=== PATIENT | male | born 1955 | race Caucasian/White ===

== ENCOUNTER 2016-12-03 03:20 | Observation (INO) | payer MEDICAID ==
[2016-12-03] MEDS ORDERED: NS 1,000 ML IV ONE (03:53)
[2016-12-03 04:00] LABS: % IMMATURE GRANULYOCYTES 0.6 % (0.0-1.1); ABSOLUTE IMMATURE GRANULOCYTES 0.14 10^3/uL (0.00-0.10); ADD DIFF? NO; ADD MORPH? NO; ADD SCAN? NO; ATYPICAL LYMPHOCYTE FLAG 0 (0-99); FRAGMENT RBC FLAG 0 (0-99); HEMATOCRIT 43.7 % (40.0-51.0); HEMOGLOBIN 13.5 g/dL (13.7-17.5); LEFT SHIFT FLG 0 (0-99); LIPEMIA HEMOLYSIS FLAG 80 (0-99); MEAN CELL HEMOGLOBIN 27.7 pg (27.9-34.1); MEAN CELL HEMOGLOBIN CONCENTR. 30.9 g/dL (32.4-36.7); MEAN CELL VOLUME 89.5 fL (81.5-99.8); MEAN PLATELET VOLUME 9.6 fL (8.7-11.7); PLATELET CLUMPS FLAG 0 (0-99); PLATELET COUNT 337 10^3/uL (150-400); RED BLOOD CELL COUNT 4.88 10^6/uL (4.40-6.38); RED CELL DISTRIBUTION WIDTH 17.8 % (11.5-15.2)
[2016-12-03 04:06] LABS: ALANINE AMINOTRANSFERASE 22 IU/L (21-72); ALBUMIN 3.9 g/dL (3.5-5.0); ALKALINE PHOSPHATASE 94 IU/L (38-126); ANION GAP 16 mEq/L (8-16); ASPARTATE AMINOTRANSFERASE 18 IU/L (17-59); BILIRUBIN,TOTAL 0.7 mg/dL (0.1-1.4); CALCIUM 9.3 mg/dL (8.5-10.4); CARBON DIOXIDE 22 mEq/l (22-31); CHLORIDE 106 mEq/L (97-110); CREATININE 1.9 mg/dL (0.7-1.3); GLOMERULAR FILTRATION RATE 36; GLUCOSE 185 mg/dL (70-100); SODIUM 144 mEq/L (134-144); TOTAL PROTEIN 6.5 g/dL (6.3-8.2)
[2016-12-03 04:08] LABS: INR 1.04 (0.83-1.16); PROTIME(PATIENT) 13.5 SEC (12.0-15.0)
[2016-12-03 04:09] LABS: APTT 34.9 SEC (23.0-38.0)
[2016-12-03 04:40] LABS: COLOR YELLOW; LEUKOCYTE ESTERASE,URINE 3+ (NEGATIVE); NITRITE,URINE NEGATIVE (NEGATIVE)
[2016-12-03] MEDS ORDERED: ONDANSETRON 4 MG/2 ML VIAL IVP ONE (04:55)
[2016-12-03] MEDS ORDERED: ONDANSETRON 4 MG/2 ML VIAL ONE (04:56)
[2016-12-03 04:59] LABS: AMORPHOUS PRESENT /hpf (NONE-1+); MUCUS TRACE /lpf (NONE-1+); WBC,URINE 50-182 /hpf (0-3)
--- NOTE | 2016-12-03 05:21 | EDPHY ---
H & P Stated Complaint: vomiting since yesterday, [facility] reports coffee grounds. Time Seen by Provider: 12/03/16 03:27 HPI/ROS: HPI The patient presents with nausea and vomiting for the last 24 hours, this started suddenly and has been constant, apparently it has appeared coffee- ground in nature to the nurses at his fdc, [facility]. He has not complained of abdominal pain, it is unclear when his last bowel movement was. He is on aspirin 81 mg. He had a similar presentation requiring hospital admission, his symptoms resolved on their own, CT showed ileus versus partial small-bowel obstruction. He has no prior history of abdominal operation according to his records. REVIEW OF SYSTEMS Unable to obtain given patient's aphasia PMHx: Status post CVA, history of aspiration pneumonia Soc Hx: Resides at [facility] PHYSICAL General Appearance: Alert, no distress Eyes: Pupils equal and round no pallor or injection ENT, Mouth: Mucous membranes moist Respiratory: There are no retractions, lungs are clear to auscultation Cardiovascular: Regular rate and rhythm Gastrointestinal: Abdomen is distended, with mild diffuse tenderness Neurological: Alert Skin: Warm and dry, no rashes Musculoskeletal: Neck is supple non tender Extremities: Contractures of his left upper extremity Psychiatric: Patient is oriented X 3, there is no agitation Source: EMS, longterm records, Old records - Personal History Current Tetanus/Diphtheria Vaccine: Unsure Current Tetanus Diphtheria and Acellular Pertussis (TDAP): Unsure - Medical/Surgical History Hx Asthma: No Hx Chronic Respiratory Disease: No Hx Diabetes: Yes Hx Cardiac Disease: Yes Hx Renal Disease: No Hx Cirrhosis: No Hx Alcoholism: No Hx HIV/AIDS: No Hx Splenectomy or Spleen Trauma: No Other PMH: CVA with left sided hemiplegia; T2DM; depression; htn; 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; dysarthria; anemia; hypokalemia; - Social History Smoking Status: Unknown if ever smoked Constitutional: Initial Vital Signs Temperature (C) 36.6 C 12/03/16 03:27 Heart Rate 95 12/03/16 03:27 Respiratory Rate 18 12/03/16 03:27 Blood Pressure 135/92 H 12/03/16 03:27 O2 Sat (%) 93 12/03/16 03:27 O2 Delivery Mode Nasal Cannula O2 (L/minute) 2 Allergies/Adverse Reactions: No Known Allergies Allergy (Unverified 02/14/13 08:17) Home Medications: Medication Instructions Recorded Atorvastatin Calcium [Lipitor 10 10 mg PO HS 01/05/15 mg (*)] Bisacodyl [Dulcolax] 10 mg MI DAILY PRN 01/05/15 Cyclobenzaprine [Flexeril 10 MG 10 mg PO TID 01/05/15 (*)] Ipratropium/Albuterol [Duoneb (*)] 1 inh NEB Q4 PRN 01/05/15 Labetalol HCl [Trandate 200 mg (*)] 200 mg PO TID 01/05/15 Losartan Potassium [Cozaar] 100 mg PO DAILY 01/05/15 Magnesium Hydroxide [Milk of 30 ml PO DAILY PRN 01/05/15 Magnesia (*)] Sennosides/Docusate Sodium 2 tab PO BID 01/05/15 [Senokot-S] amLODIPine BESYLATE [Norvasc 5 mg 5 mg PO BID 01/05/15 (*)] Lidocaine 2% Jelly [Lidocaine 2% 1 vishal TP PRN PRN 06/06/15 Jelly 30 gm] Ondansetron Odt [Zofran Odt 4 mg 4 mg PO Q8 PRN 06/06/15 (*)] Acetaminophen [Tylenol 325mg (*)] 650 mg PO DAILY PRN 10/16/15 Ipratropium/Albuterol [Duoneb (*)] 3 ml IH Q12 PRN 10/16/15 Mag Hydrox/Al Hydrox/Simeth 30 ml PO Q8 PRN 10/16/15 [Maalox Maximum Strength Suspension] Polyethylene Glycol 3350 [Miralax 17 gm PO DAILY 10/16/15 17 gm (*)] PRILOSEC 12/03/16 Medical Decision Making - Diagnostics Imaging Results: CT scan abdomen pelvis without IV contrast demonstrates SBO with transition in the mid small distal jejunum and proximal ileum, stomach is distended, minimal mesenteric edema, discussed with Dr. Arambula of Radiology. Differential Diagnosis: This is a 61-year-old man from [place] with history of CVA, hypertension, diabetes, prior upper GI bleed, self-limited, coming in by ambulance for 24 hours of nausea and vomiting, which has become coffee-ground in nature. Differential diagnosis includes bowel obstruction, peptic ulcer disease, duodenal ulcer, Johanna-Barrera tear less likely esophageal varices. In the emergency room, the patient was given IV fluids for vomiting and Zofran. He was started on a Protonix bolus and then a drip. He did not have any active vomiting here. Labs were checked and revealed a profound leukocytosis. UA showed signs of infection however was from his Blount catheter and may likely be contaminated. We can send culture. CT scan was performed without contrast because of the patient's elevated BUN and creatinine. This revealed small-bowel obstruction. In the absence of any previous operations, is not clear the cause of his bowel obstruction. I consulted with Dr. Aly will see the patient in consultation in the hospital. I also consulted with Dr. Clark of the hospitalist service and he will admit the patient. We placed an NG tube with return of about 900 mL of dark fluid. - Data Points Laboratory Results: Laboratory Results 12/03/16 03:36 12/03/16 03:36 12/03/16 12/03/16 12/03/16 04:28 03:36 03:36 WBC RBC Hgb Hct MCV MCH MCHC RDW Plt Count MPV Neut % (Auto) Lymph % (Auto) Bill[place] % (Auto) Eos % (Auto) Baso % (Auto) Nucleat RBC Rel Count Absolute Neuts (auto) Absolute Lymphs (auto) Absolute Monos (auto) Absolute Eos (auto) Absolute Basos (auto) Absolute Nucleated RBC Immature Gran % Immature Gran # PT 13.5 SEC SEC (12.0-15.0) INR 1.04 (0.83-1.16) APTT 34.9 SEC SEC (23.0-38.0) Sodium 144 mEq/L mEq/L (134-144) Potassium 5.0 mEq/L mEq/L (3.5-5.2) Chloride 106 mEq/L mEq/L (97-110) Carbon Dioxide 22 mEq/l mEq/l (22-31) Anion Gap 16 mEq/L mEq/L (8-16) BUN 31 mg/dL H mg/dL (7-23) Creatinine 1.9 mg/dL H mg/dL (0.7-1.3) Estimated GFR 36 Glucose 185 mg/dL H mg/dL (70-100) Calcium 9.3 mg/dL mg/dL (8.5-10.4) Total Bilirubin 0.7 mg/dL mg/dL (0.1-1.4) AST 18 IU/L IU/L (17-59) ALT 22 IU/L IU/L (21-72) Alkaline Phosphatase 94 IU/L IU/L (38-126) Total Protein 6.5 g/dL g/dL (6.3-8.2) Albumin 3.9 g/dL g/dL (3.5-5.0) Lipase 76.0 IU/L IU/L (23-300) Urine Color YELLOW Urine Appearance MODERATELY TURBID Urine pH 8.0 H (5.0-7.5) Ur Specific [place] 1.020 (1.002-1.030) Urine Protein 2+ H (NEGATIVE) Urine Ketones NEGATIVE (NEGATIVE) Urine Blood NEGATIVE (NEGATIVE) Urine Nitrate NEGATIVE (NEGATIVE) Urine Bilirubin NEGATIVE (NEGATIVE) Urine Urobilinogen NEGATIVE EU EU (0.2-1.0) Ur Leukocyte Esterase 3+ H (NEGATIVE) Urine RBC 1-3 /hpf /hpf (0-3) Urine WBC 50-182 /hpf H /hpf (0-3) Ur Epithelial Cells NONE SEEN /lpf /lpf (NONE-1+) Calcium Phosphate Cryst PRESENT /hpf /hpf (NONE-1+) Amorphous Sediment PRESENT /hpf /hpf (NONE-1+) Urine Mucus TRACE /lpf /lpf (NONE-1+) Urine Glucose NEGATIVE (NEGATIVE) 12/03/16 03:36 WBC 23.40 10^3/uL H 10^3/uL (3.80-9.50) RBC 4.88 10^6/uL 10^6/uL (4.40-6.38) Hgb 13.5 g/dL L g/dL (13.7-17.5) Hct 43.7 % % (40.0-51.0) MCV 89.5 fL fL (81.5-99.8) MCH 27.7 pg L pg (27.9-34.1) MCHC 30.9 g/dL L g/dL (32.4-36.7) RDW 17.8 % H % (11.5-15.2) Plt Count 337 10^3/uL 10^3/uL (150-400) MPV 9.6 fL fL (8.7-11.7) Neut % (Auto) 89.7 % H % (39.3-74.2) Lymph % (Auto) 4.8 % L % (15.0-45.0) Billings % (Auto) 4.6 % % (4.5-13.0) Eos % (Auto) 0.0 % L % (0.6-7.6) Baso % (Auto) 0.3 % % (0.3-1.7) Nucleat RBC Rel Count 0.0 % % (0.0-0.2) Absolute Neuts (auto) 20.99 10^3/uL H 10^3/uL (1.70-6.50) Absolute Lymphs (auto) 1.12 10^3/uL 10^3/uL (1.00-3.00) Absolute Monos (auto) 1.07 10^3/uL H 10^3/uL (0.30-0.80) Absolute Eos (auto) 0.01 10^3/uL L 10^3/uL (0.03-0.40) Absolute Basos (auto) 0.07 10^3/uL 10^3/uL (0.02-0.10) Absolute Nucleated RBC 0.00 10^3/uL 10^3/uL (0-0.01) Immature Gran % 0.6 % % (0.0-1.1) Immature Gran # 0.14 10^3/uL H 10^3/uL (0.00-0.10) PT INR APTT Sodium Potassium Chloride Carbon Dioxide Anion Gap BUN Creatinine Estimated GFR Glucose Calcium Total Bilirubin AST ALT Alkaline Phosphatase Total Protein Albumin Lipase Urine Color Urine Appearance Urine pH Ur Specific [place] Urine Protein Urine Ketones Urine Blood Urine Nitrate Urine Bilirubin Urine Urobilinogen Ur Leukocyte Esterase Urine RBC Urine WBC Ur Epithelial Cells Calcium Phosphate Cryst Amorphous Sediment Urine Mucus Urine Glucose Medications Given: Discontinued Medications Sodium Chloride (Ns) 1,000 mls @ 0 mls/hr IV ONCE ONE; Wide Open PRN Reason: Protocol Stop: 12/03/16 03:54 Last Admin: 12/03/16 03:59 Dose: 1,000 mls Pantoprazole Sodium 80 mg/ (Sodium Chloride) 100 mls @ 200 mls/hr IV ONCE ONE Stop: 12/03/16 06:16 Last Admin: 12/03/16 06:20 Dose: 100 mls Ondansetron HCl (Zofran) 4 mg IVP EDNOW ONE Stop: 12/03/16 04:56 Last Admin: 12/03/16 04:59 Dose: 4 mg Departure - Departure Disposition: [facility] Inpatient Acute Clinical Impression: Upper GI bleed, SBO (small bowel obstruction), History of CVA with residual deficit Vomiting Qualifiers: Vomiting type: unspecified Vomiting Intractability: non-intractable Nausea presence: with nausea Qualified Code(s): R11.2 - Nausea with vomiting, unspecified Leukocytosis Qualifiers: Leukocytosis type: unspecified Qualified Code(s): D72.829 - Elevated white blood cell count, unspecified Condition: Fair Referrals: JULIUS HUGGINS [Primary Care Provider] - As per Instructions
[2016-12-03] MEDS ORDERED: PANTOPRAZOLE SODIUM 80 MG in NS 100 ML IV ONE (05:47)
[2016-12-03] MEDS ORDERED: PANTOPRAZOLE SODIUM 80 MG in NS 100 ML IV SCH (06:00)
[2016-12-03] MEDS ORDERED: ONDANSETRON 4 MG/2 ML VIAL IVP PRN (06:23)
[2016-12-03] MEDS ORDERED: PROMETHAZINE HCL 25 MG/ML INJ IVP PRN (06:23)
[2016-12-03] MEDS ORDERED: ACETAMINOPHEN 325 MG TAB PO PRN (06:23)
[2016-12-03] MEDS ORDERED: LIDOCAINE 2% JELLY 20 ML (UROJECT) ONE ×2 (06:36→11:18)
--- NOTE | 2016-12-03 07:05 | GHP ---
[f rep st] HISTORY AND PHYSICAL DATE OF ADMISSION: 12/03/2016 CHIEF COMPLAINT: Nausea and vomiting. HISTORY OF PRESENT ILLNESS: This is a 61-year-old male, resident of [place], with history of CVA with resulting left-sided hemiparesis who presented to the emergency department today with reported 24 hour history of nausea and vomiting. The patient was admitted to the hospital with similar symp toms in September of 2015, at which time, he was diagnosed with a possible upper GI bleed and was ultima tely discharged without undergoing endoscopy or receiving transfusion. Patient tells me that his nausea and vomiting began yesterday. He had some diarrhea yesterday zahra gaitan as well and has not had a bowel movement since. He has not been able to tolerate fluids or solid s due to the vomiting. Per report, his vomitus was noted to be very dark and possibly containing so me coffee-grounds. Patient denies any abdominal pain. He does take aspirin. The last endoscopy wa s in 2012 where he was found to have an ulcer. PAST MEDICAL HISTORY: 1. History of CVA with left-sided flaccid paralysis. 2. Diabetes mellitus 2. 3. Hypertension. 4. Depression. 5. Anemia. 6. Hospitalizations for pneumonia. 7. Hospitalizations for urinary tract infections. 8. C difficile. 9. Esophageal ulcer on endoscopy January of 2013. HOME MEDICATIONS: Refer to [facility] for details. ALLERGIES: No known drug allergies. SOCIAL HISTORY: The patient resides at [facility]. There is no history of alcohol, tobacco or illic it drug use. FAMILY HISTORY: Reviewed and noncontributory. REVIEW OF SYSTEMS: A comprehensive 10-point review of systems was done and is negative, except for as mentioned in the HPI. PHYSICAL EXAM: VITAL SIGNS: Blood pressure 123/77, pulse 94, respiratory rate 16, O2 saturation 96 % on 2 L, temperature afebrile. GENERAL: No acute distress. HEAD: Normocephalic, atraumatic. EY ES: PERRLA. Sclerae anicteric. ENT: Nasogastric tube is in place draining dark colored gastric c ontents with no obvious coffee-grounds. CARDIOVASCULAR: S1, S2. No JVD. Mild left lower extremit y edema. Right leg is without swelling or edema. PULMONARY: Lungs are clear. No wheezes, rales, o r rhonchi. ABDOMEN: Distended, but nontender. There is no guarding. Bowel sounds are diminished. EXTREMITIES: No clubbing or cyanosis. NEURO: Left-sided paralysis. There does not appear to be any acute neurologic changes. Cranial nerves 2 through 12 are grossly intact. DIAGNOSTICS: WBC is 23.4, hemoglobin 13.5, hematocrit 43.7, platelets 337. INR 1.04. Sodium 144, potassium 5, chloride 106, CO2 22, BUN 31, creatinine 1.9, glucose 185. LFTs unremarkable. UA: 3+ leukocyte esterase. Urine cultures from last year were reviewed. Urine culture from 01/04/2016 gr ew Proteus. September 2015 urine grew Staph, Proteus, Providencia. CT of the abdomen and pelvis, preliminary report, per Dr. Dean showed small bowel obstruction. ASSESSMENT AND PLAN: This is a 61-year-old male with history of cerebrovascular accident and residu al left-sided paralysis presents to the hospital with: Nausea and vomiting with CT consistent with a small bowel obstruction per Dr. Dean's report. Plan: 1. The patient will be admitted to the hospital where Dr. Aly from general surgery will see the patient in consultation. The final report of the CT scan will need to be reviewed. Will start IV f luids and antiemetics. 2. History of chronic Blount catheter with pyuria and leukocytosis. 3. It is unclear to me at this time if the patient has acute infection. I think it is reasonable t o watch him off antibiotics. Will also send a procalcitonin level to see if this adds any clinicall y relevant information to the picture. If the procalcitonin level is low, I think it would further support the decision to monitor off antibiotics. However, if the procalcitonin level is indetermina te or high, I would be more opt to treating for potential UTI based on his leukocytosis and overall picture. Dark-colored vomiting, rule out gastrointestinal bleed. Plan: Will monitor H and H q.6 hours and continue a proton pump inhibitor. Will also send blood ty pe and screen. The patient will be placed on observation. Anticipated length of stay at this time is uncertain. I f he remains in the hospital for more than 24 hours due to small bowel obstruction, he will then be transitioned to inpatient status. /[id number]/MODL
[2016-12-03] MEDS ORDERED: PANTOPRAZOLE SODIUM 40 MG in NS 100 ML IV SCH (09:00)
[2016-12-03] MEDS: D5W 1/2 NS W/ 20 KCl/L 1,000 ML IV SCH (09:07)
--- NOTE | 2016-12-03 12:57 | HOSPPROG ---
Hospitalist Progress Note Assessment/Plan: Patient is a 61 y/o male who resides at [place] who presented to the ER w nausea and vomiting. He was admitted earlier this morning by Dr Clark. I reviewed his care with Dr Aly. *SBO NG placed in by Dr Aly fluids and antiemetics *leukocytosis significant/ will recheck in a.m. procalcitonin is elevated at 0.36 (possible local infection) *chronic diaz catheter placement urine shows pyuria/ will send for culture hesitant to start abx at this time due to c diff has no complaints *hx of CVA with residual left sided weakness/paralysis *renal insufficiency creat i s 1.9 *DM2 sliding scale *htn will order prn meds *depression *hx of c diff *plan: small bowel follow thru/ will get repeat labs in a.m. Subjective: David says he is not having any pain. Objective: Vital Signs Temp Pulse Resp BP Pulse Ox 36.8 C 89 15 142/85 H 97 12/03/16 07:52 12/03/16 07:52 12/03/16 07:52 12/03/16 07:52 12/03/16 07:52 12/02/16 12/03/16 12/04/16 05:59 05:59 05:59 Intake Total 1000 Output Total 600 Balance 400 PT 13.5 SEC (12.0-15.0) 12/03/16 03:36 INR 1.04 (0.83-1.16) 12/03/16 03:36 - Physical Exam Constitutional: not in pain, chronically ill appearing Eyes: PERRL Ears, Nose, Mouth, Throat: hearing normal Skin: warm Neurologic: AAOx3 Psychiatric: interacting appropriately ICD10 Worksheet Patient Problems: Problems Problem Status Onset History of CVA with residual deficit Acute Leukocytosis Acute SBO (small bowel obstruction) Acute Upper GI bleed Acute Vomiting Acute Aspiration pneumonia Acute Bowel obstruction Acute Dyspnea Acute Hematuria Acute Hydronephrosis Acute Hypoxia Acute Neoplasm of renal pelvis Acute Sepsis Acute Upper GI bleed Acute Vomiting Acute
[2016-12-03] MEDS ORDERED: D50W 25 GM/50 ML SYR IVP PRN (13:02)
[2016-12-03] MEDS ORDERED: LABETALOL HCL 5 MG/ML 20 ML MDV IVP PRN (14:29)
[2016-12-03 16:09] LABS: HEMATOCRIT 37.2 % (40.0-51.0); HEMOGLOBIN 11.6 g/dL (13.7-17.5)
[2016-12-03] MEDS: INSULIN LISPRO 100 UNIT/ML SC SCH (20:03)
[2016-12-03] MEDS: PANTOPRAZOLE SODIUM 40 MG in NS 100 ML IV SCH (20:06)
--- NOTE | 2016-12-03 21:02 | SOAPPROG ---
SOAP Progress Note Assessment/Plan: 12/03/16 20:46 Assessment: Bowel obstruction appears to have resolved. Contrast is in the ascending colon and he is passing flatus. I suspect that aerophagia may be a contributing factor. Plan: DC NG. I will sign off. Please reconsult if I can be of any further assistance. Subjective: I'm passing gas and feel much better Objective: Vital Signs Temp Pulse Resp BP Pulse Ox 36.6 C 100 18 127/82 H 90 L 12/03/16 20:10 12/03/16 20:10 12/03/16 20:10 12/03/16 20:10 12/03/16 20:10 Laboratory Results 12/03/16 15:51 12/02/16 12/03/16 12/04/16 05:59 05:59 05:59 Intake Total 1000 Output Total 1000 Balance 0 PT 13.5 SEC (12.0-15.0) 12/03/16 03:36 INR 1.04 (0.83-1.16) 12/03/16 03:36 - Time Spent With Patient Time Spent With Patient: 15 ICD10 Worksheet Patient Problems: Problems Problem Status Onset History of CVA with residual deficit Acute Leukocytosis Acute SBO (small bowel obstruction) Acute Upper GI bleed Acute Vomiting Acute Aspiration pneumonia Acute Bowel obstruction Acute Dyspnea Acute Hematuria Acute Hydronephrosis Acute Hypoxia Acute Neoplasm of renal pelvis Acute Sepsis Acute Upper GI bleed Acute Vomiting Acute
[2016-12-03 22:32] LABS: HEMATOCRIT 35.7 % (40.0-51.0); HEMOGLOBIN 11.2 g/dL (13.7-17.5)
[2016-12-04] MEDS: D5W 1/2 NS W/ 20 KCl/L 1,000 ML IV SCH (02:38)
[2016-12-04 05:39] LABS: % IMMATURE GRANULYOCYTES 0.4 % (0.0-1.1); ABSOLUTE IMMATURE GRANULOCYTES 0.04 10^3/uL (0.00-0.10); ADD DIFF? NO; ADD MORPH? NO; ADD SCAN? NO; ATYPICAL LYMPHOCYTE FLAG 0 (0-99); FRAGMENT RBC FLAG 0 (0-99); HEMATOCRIT 36.4 % (40.0-51.0); HEMOGLOBIN 11.1 g/dL (13.7-17.5); LEFT SHIFT FLG 10 (0-99); LIPEMIA HEMOLYSIS FLAG 80 (0-99); MEAN CELL HEMOGLOBIN 27.3 pg (27.9-34.1); MEAN CELL HEMOGLOBIN CONCENTR. 30.5 g/dL (32.4-36.7); MEAN CELL VOLUME 89.7 fL (81.5-99.8); MEAN PLATELET VOLUME 9.2 fL (8.7-11.7); PLATELET CLUMPS FLAG 0 (0-99); PLATELET COUNT 249 10^3/uL (150-400); RED BLOOD CELL COUNT 4.06 10^6/uL (4.40-6.38); RED CELL DISTRIBUTION WIDTH 17.5 % (11.5-15.2)
[2016-12-04 05:58] LABS: ALANINE AMINOTRANSFERASE 24 IU/L (21-72); ALBUMIN 2.8 g/dL (3.5-5.0); ALKALINE PHOSPHATASE 64 IU/L (38-126); ANION GAP 10 mEq/L (8-16); ASPARTATE AMINOTRANSFERASE 13 IU/L (17-59); BILIRUBIN,TOTAL 0.3 mg/dL (0.1-1.4); CALCIUM 8.4 mg/dL (8.5-10.4); CARBON DIOXIDE 22 mEq/l (22-31); CHLORIDE 109 mEq/L (97-110); CREATININE 1.7 mg/dL (0.7-1.3); GLOMERULAR FILTRATION RATE 41; GLUCOSE 139 mg/dL (70-100); SODIUM 141 mEq/L (134-144); TOTAL PROTEIN 5.2 g/dL (6.3-8.2)
[2016-12-04 07:52] VITALS: TEMP 98.1
[2016-12-04] MEDS: PANTOPRAZOLE SODIUM 40 MG in NS 100 ML IV SCH (08:08)
[2016-12-04] MEDS: INSULIN LISPRO 100 UNIT/ML SC SCH ×2 (08:10→11:50)
[2016-12-04] MEDS ORDERED: SIMETH PO PRN (08:51)
[2016-12-04] MEDS ORDERED: MAG HYDROX PO PRN (08:51)
[2016-12-04] MEDS ORDERED: AL HYDROX PO PRN (08:51)
[2016-12-04] MEDS ORDERED: GUAIFENESIN 200 MG PO PRN (08:51)
[2016-12-04] MEDS ORDERED: [UNRECOGNIZED DRUG - OTHER] PO PRN (08:51)
[2016-12-04] MEDS ORDERED: NON-FORMULARY NEW DRUG (Losartan Potassium [Cozaar] 100 MG) PO SCH (09:00)
[2016-12-04] MEDS ORDERED: ACETIC ACID IRR SOLN 0.25% 1,000 ML BTL IRR SCH (09:00)
[2016-12-04] MEDS ORDERED: PANTOPRAZOLE SODIUM 40 MG TAB PO SCH (09:00)
[2016-12-04] MEDS ORDERED: NON-FORMULARY NEW DRUG (Omeprazole [Omeprazole] 40 MG) PO SCH (09:00)
[2016-12-04] MEDS ORDERED: ASPIRIN 81 MG CHEWABLE TAB PO SCH (09:00)
[2016-12-04] MEDS ORDERED: amLODIPine BESYLATE 5 MG TAB PO SCH (09:00)
[2016-12-04] MEDS ORDERED: LABETALOL HCL 200 MG TAB PO SCH (09:00)
[2016-12-04] MEDS ORDERED: SENNOSIDES/DOCUSATE SODIUM TAB PO SCH (09:00)
[2016-12-04] MEDS ORDERED: MAG HYDROX/AL HYDROX/SIMETH 30 ML UDCUP PO PRN (09:19)
[2016-12-04] MEDS ORDERED: guaiFENesin 200 MG TAB PO PRN (09:20)
--- NOTE | 2016-12-04 10:08 | HOSPPROG ---
Hospitalist Progress Note Assessment/Plan: Patient is a 61 y/o male who resides at [place] who presented to the ER w nausea and vomiting. *SBO resolved with small bowel follow thru *leukocytosis resolved procalcitonin is elevated at 0.36 (possible local infection) *chronic diaz catheter placement urine shows pyuria/ will send for culture hesitant to start abx at this time due to c diff has no complaints *hx of CVA with residual left sided weakness/paralysis *renal insufficiency creat i s 1.7 *DM2 sliding scale/glucose 139 *hypotension asymptomatic/ will place parameters on home bp meds *htn will order prn meds *depression home meds resumed *hx of c diff *plan: dc back to [facility] if bp improves. Subjective: David said he is feeling much better today. Objective: Vital Signs Temp Pulse Resp BP Pulse Ox 36.7 C 91 16 93/62 L 90 L 12/04/16 07:51 12/04/16 07:51 12/04/16 07:51 12/04/16 07:51 12/04/16 07:51 Laboratory Results 12/04/16 05:21 12/04/16 05:21 12/03/16 12/04/16 12/05/16 05:59 05:59 05:59 Intake Total 1000 Output Total 1420 Balance -420 PT 13.5 SEC (12.0-15.0) 12/03/16 03:36 INR 1.04 (0.83-1.16) 12/03/16 03:36 - Physical Exam Constitutional: no apparent distress, appears nourished, not in pain, chronically ill appearing Eyes: PERRL Ears, Nose, Mouth, Throat: hearing normal Cardiovascular: regular rate and rhythym Respiratory: no respiratory distress Gastrointestinal: normoactive bowel sounds, soft, non-tender abdomen Skin: warm Neurologic: AAOx3 Psychiatric: interacting appropriately ICD10 Worksheet Patient Problems: Problems Problem Status Onset History of CVA with residual deficit Acute Leukocytosis Acute SBO (small bowel obstruction) Acute Upper GI bleed Acute Vomiting Acute Aspiration pneumonia Acute Bowel obstruction Acute Dyspnea Acute Hematuria Acute Hydronephrosis Acute Hypoxia Acute Neoplasm of renal pelvis Acute Sepsis Acute Upper GI bleed Acute Vomiting Acute
--- NOTE | 2016-12-04 10:19 | PDIAF ---
- Diagnosis Diagnosis: SBO Code Status: Full Code - Medication Management Discharge Medications: Medications to Continue on Transfer Atorvastatin Calcium [Lipitor 10 mg (*)] 10 mg PO HS 01/05/15 [Last Taken 19:00] Labetalol HCl [Trandate 200 mg (*)] 200 mg PO TID 01/05/15 [Last Taken 12/02/16 19:00] Losartan Potassium [Cozaar] 100 mg PO DAILY 01/05/15 [Last Taken 12/02/16 09:00] Sennosides/Docusate Sodium [Senokot-S] 2 tab PO BID 01/05/15 [Last Taken 09:00] amLODIPine BESYLATE [Norvasc 5 mg (*)] 5 mg PO BID 01/05/15 [Last Taken 19:00] Mag Hydrox/Al Hydrox/Simeth [Maalox Maximum Strength Suspension] 30 ml PO Q8 PRN 10/16/15 [Last Taken 10/15/15] Acetic Acid Irr Soln 0.25% 30 ml IRR BID 12/03/16 [Last Taken 12/02/16 19:00] Aspirin [Aspirin 81mg (*)] 81 mg PO DAILY 12/03/16 [Last Taken 12/01/16 09:00] CYCLOBENZAPRINE HCL [Flexeril] 5 mg PO HS 12/03/16 [Last Taken 12/02/16 19:00] Cyclobenzaprine [Flexeril 10 MG (*)] 10 mg PO BID@0700,1100 12/03/16 [Last Taken 12/02/16 11:00] Omeprazole 40 mg PO DAILY 12/03/16 [Last Taken Unknown] Venlafaxine Xr [Effexor Xr 37.5MG (*)] 112.5 mg PO HS 12/03/16 [Last Taken 12/02 19:00] guaiFENesin [Guaifenesin] 200 mg PO Q4HRS PRN 12/03/16 [Last Taken Unknown] Acetaminophen [Tylenol 325mg (*)] 650 mg PO Q6 PRN #0 tab 12/04/16 [Last Taken Unknown] Discharge Medications: Refer to the Discharge Home Medication list for PRN reason. - Orders Services needed: Physical Therapy, Occupational Therapy Diet Recommendation: ADA 1800 consistent carb Diet Texture: Regular Texture Diet Additional: Check blood pressure daily, hold blood pressure medications unless systolic is >110. - Follow Up Care Current Providers and Referrals: JULIUS HUGGINS [Primary Care Provider] - As per Instructions
--- NOTE | 2016-12-04 10:53 | GDS ---
[f rep st] DISCHARGE SUMMARY DISCHARGE DIAGNOSES: 1. Small-bowel obstruction, resolved. 2. Leukocytosis, resolved. 3. Chronic Blount catheter placement. 4. History of cerebrovascular accident with residual left-sided paralysis. 5. Renal insufficiency. 6. Diabetes type 2. 7. Hypotension. 8. Hypertension. 9. History of Clostridium difficile. CONSULTATION: During his stay, Dr. Shamir Aly. BRIEF HISTORY: The patient is a 61-year-old male, who resides at [facility], with a history of cerebrovascular accident with resulting left-sided hemiparesis. He presented to the emergency room with a 24 hour history of nausea and vomiting. He had similar symptoms in September 2015, in which he was diagnosed with an upper GI bleed and was ultimately discharged without undergoing endoscopy or receiving transfusion. On admission, he had a CT of the abdomen and pelvis, which showed a small bowel obstruction. He was subsequently seen by Dr. Ayl, who ordered a small bowel series, with this he had resolution of the small bowel obstruction with passage of Gastrografin through the small bowel into the ascending colon, and resolution of the previous small-bowel distention. Today, he is feeling markedly better. He will be discharged back to [facility] and resume a regular diet. HOSPITAL COURSE: 1. Small-bowel obstruction, resolved. 2. Leukocytosis, resolved. A procalcitonin level was checked, which is minimally elevated, indicating possibly low infection. He was not treated with antibiotics. 3. Chronic Blount catheter placement. His urine shows pyuria. I suspect he has chronic colonization from the Blount. 4. History of CVA, at his baseline. 5. Renal insufficiency. His creatinine is 1.7. 6. Diabetes type 2. Glucose is 139. 7. Hypotension, he is asymptomatic, recommending at [facility] that they hold his blood pressure medications if his systolic is less than 110. 8. Hypertension, none. 9. Depression. His home medication has been resumed. PENDING LABS AND TESTS: None. CONDITION: Stable. Blood pressure is 112/65, heart rate is 91, respiratory rate is 18, O2 saturation on 1 L 93%. Temperature is 36.8 Celsius. MEDICATIONS AT DISCHARGE: Please see the EMR. DISCHARGE INSTRUCTIONS: 1. Recommending that [facility] monitor his blood pressure due to some hypotension at the hospital. 2. If he develops any further nausea, vomiting, any similar symptoms to return to the ER. /[id number]/MODL MTDD
[2016-12-04 10:57] VITALS: BP 139/88; PULSE 98; RESP 18; O2SAT 91
[2016-12-04] MEDS ORDERED: CYCLOBENZAPRINE 10 MG TAB PO SCH ×2 (11:00→21:00)
--- NOTE | 2016-12-04 14:00 | WOCRNPDOC ---
[facility] Advanced Assessment Note - Skin Integrity Problem, Advanced Assess Left Ischial Tuberosity Pressure Injury Dressing Type: Allevyn Life Dressing Description: Clean/Dry, Intact Exudate Amount: None Integumentary Issue Intervention: Visualized Under Dressing Natacha Wound Tissue: Blanching, Erythema Natacha Wound Swelling: None Wound Bed Constitution: Smooth Tissue Wound Edges: Attached Site Odor: None Site Measurement - Head-to-Toe Length X Width X Depth (cm): 2 x 0.5 x 0.05 Pressure Injury Stage: Stage 2 Pressure Injury Present on Admit: Yes (Noted by requesting RN within 24h) Skin Integrity Problem Comment: Three small, linear shallow openings resembling superficial abrasions are observed adjacent to each other around L ischial tuberosity. RN has protected sites with an Allevyn dressing and implemented q2h turns. Placed a waffle air cushion to patient's chair while PAULIE Swanson and aide assisting patient to pivot from bed to chair. Discussed care and prevention of further injury at [place] with patient, and encouraged to take air cushion with him at [place].
[2016-12-04] MEDS ORDERED: VENLAFAXINE XR 37.5 MG CAP PO SCH (21:00)
[2016-12-04] MEDS ORDERED: NON-FORMULARY NEW DRUG (Cyclobenzaprine Hcl [Flexeril] 5 MG) PO SCH (21:00)
[2016-12-04] MEDS ORDERED: ATORVASTATIN CALCIUM 10 MG TAB PO SCH (21:00)
[2016-12-05] MEDS ORDERED: LOSARTAN POTASSIUM 50 MG TAB PO SCH (09:00)
== END 2016-12-04 16:12 ==
LOC: EDUNIT# → INTOOBSV 06:19 → F3E 07:45
PROVIDERS: ADMIT Family Medicine; ATTEND Internal Medicine
DX: K56.60 Unspecified intestinal obstruction (principal); D72.829 Elevated white blood cell count, unspecified; I69.352 Hemiplegia and hemiparesis following cerebral infarction affecting left dominant side; I69.322 Dysarthria following cerebral infarction; N18.9 Chronic kidney disease, unspecified; E11.9 Type 2 diabetes mellitus without complications; I12.9 Hypertensive chronic kidney disease with stage 1 through stage 4 chronic kidney disease, or unspecified chronic kidney disease; I95.9 Hypotension, unspecified; F32.9 Major depressive disorder, single episode, unspecified
CPT/HCPCS: 74000; 74176; 74251; 96361; 96374; 99285; G0378; J2405; J3490

== ENCOUNTER 2017-03-18 08:54 | Inpatient (IN) | payer MEDICAID ==
--- NOTE | 2017-03-18 09:14 | EDPHY ---
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 Symptoms began last night and have been progressively worsening. No report of precipitating factors. Patient had similar symptoms in November of this year with a diagnosis of small-bowel obstruction that resolved with conservative therapy. Review of systems: A 10 point review of systems was obtained and other than described above was negative (Mohamud Greenwood) - Physical Exam Exam: General Appearance: Alert, nontoxic. Eyes: Pupils equal and round no pallor or injection. ENT, Mouth: Mucous membranes moist. Respiratory: There are no retractions, lungs are clear to auscultation. Cardiovascular: Regular rate and rhythm. Gastrointestinal: Abdomen is soft and non tender, no masses, bowel sounds normal. Neurological: Alert. Left-sided weakness. Skin: Warm and dry, no rashes. Musculoskeletal: Neck is supple non tender. Extremities are symmetrical, full range of motion. Psychiatric: Patient is oriented X 3, there is no agitation. (Mohamud Greenwood) Constitutional: Initial Vital Signs Temperature (C) 37.0 C 03/18/17 08:58 Heart Rate 118 H 03/18/17 08:58 Respiratory Rate 20 03/18/17 08:58 Blood Pressure 148/102 H 03/18/17 08:58 O2 Sat (%) 96 03/18/17 08:58 O2 Delivery Mode Nasal Cannula O2 (L/minute) 4 Allergies/Adverse Reactions: No Known Allergies Allergy (Unverified 02/14/13 08:17) Home Medications: Medication Instructions Recorded Atorvastatin Calcium [Lipitor 10 10 mg PO HS 01/05/15 mg (*)] Losartan Potassium [Cozaar] 100 mg PO DAILY 01/05/15 amLODIPine BESYLATE [Norvasc 5 mg 5 mg PO BID 01/05/15 (*)] Mag Hydrox/Al Hydrox/Simeth 30 ml PO Q8 PRN 10/16/15 [Maalox Maximum Strength Suspension] Acetic Acid Irr Soln 0.25% 30 ml IRR BID 12/03/16 Aspirin [Aspirin 81mg (*)] 81 mg PO DAILY 12/03/16 CYCLOBENZAPRINE HCL [Flexeril] 5 mg PO HS 12/03/16 Cyclobenzaprine [Flexeril 10 MG 10 mg PO BID@0700,1100 12/03/16 (*)] Omeprazole 40 mg PO DAILY 12/03/16 Acetaminophen [Tylenol 325mg (*)] 650 mg PO Q6 PRN #0 tab 12/04/16 CHOLECALCIFEROL 03/18/17 Compazine 03/18/17 Effexor 03/18/17 SENEXON-S TABLET 03/18/17 Medical Decision Making - Diagnostics Imaging: Discussed imaging studies w/ call center team leader Radiologist Differential Diagnosis: Included but not limited to bowel obstruction, colitis, biliary tract disease, pancreatitis, urinary tract disease (Mohamud Greenwood) Other Provider: Independent physician documentation I evaluated and participated in the management of the patient. I also evaluated the patient independently. My co-signature indicates that I have reviewed this chart and I agree with the findings and plan of care as documented. My personal H&P findings include: The patient presents to the ED with abdominal pain and distention. He has had several episodes of nausea vomiting. The patient reports he did have a bowel movement earlier today. The patient was hospitalized earlier this year with similar presentation. At that point time he had a SBO noted on CT scan which resolved spontaneously within a day. The patient denies any history of fever, cough or congestion. The patient states his pain is mild in nature. Physical exam General Appearance: Disheveled elderly male, no acute distress Eyes: Pupils equal and round no pallor or injection ENT, Mouth: Mucous membranes moist Respiratory: There are no retractions, lungs are clear to auscultation Cardiovascular: Regular rate and rhythm Gastrointestinal: Distended, hypoactive bowel sounds, mild generalized tenderness Neurological: A&O, normal motor function, normal sensory exam, normal cranial nerves Skin: Warm and dry, no rashes Musculoskeletal: Neck is supple nontender Extremities: symmetrical, full range of motion ED course CT scan of the abdomen pelvis demonstrates evidence of a recurrent ileus versus bowel obstruction. The patient will have an NG tube placed. He will be admitted to the medicine service. Given his prior history of rapid resolution I will defer surgical consultation to the admitting medicine team. The patient does have evidence of leukocytosis which was present on admission during his last admission with similar symptoms. The patient does have chronic renal insufficiency with a baseline elevated creatinine of 2.1. (Harshad Oliveros) - Data Points Laboratory Results: Laboratory Results 03/18/17 08:56 03/18/17 08:56 03/18/17 03/18/17 03/18/17 08:56 08:56 08:55 WBC 20.63 10^3/uL H 10^3/uL (3.80-9.50) RBC 6.01 10^6/uL 10^6/uL (4.40-6.38) Hgb 17.0 g/dL g/dL (13.7-17.5) POC Hgb 19.0 gm/dL H gm/dL (13.7-17.5) Hct 51.9 % H % (40.0-51.0) POC Hct 56 % H % (40-51) MCV 86.4 fL fL (81.5-99.8) MCH 28.3 pg pg (27.9-34.1) MCHC 32.8 g/dL g/dL (32.4-36.7) RDW 15.3 % H % (11.5-15.2) Plt Count 393 10^3/uL 10^3/uL (150-400) MPV 9.5 fL fL (8.7-11.7) Neut % (Auto) 87.3 % H % (39.3-74.2) Lymph % (Auto) 6.9 % L % (15.0-45.0) [place] % (Auto) 4.1 % L % (4.5-13.0) Eos % (Auto) 0.6 % % (0.6-7.6) Baso % (Auto) 0.6 % % (0.3-1.7) Nucleat RBC Rel Count 0.0 % % (0.0-0.2) Absolute Neuts (auto) 18.00 10^3/uL H 10^3/uL (1.70-6.50) Absolute Lymphs (auto) 1.43 10^3/uL 10^3/uL (1.00-3.00) Absolute Monos (auto) 0.84 10^3/uL H 10^3/uL (0.30-0.80) Absolute Eos (auto) 0.12 10^3/uL 10^3/uL (0.03-0.40) Absolute Basos (auto) 0.13 10^3/uL H 10^3/uL (0.02-0.10) Absolute Nucleated RBC 0.00 10^3/uL 10^3/uL (0-0.01) Immature Gran % 0.5 % % (0.0-1.1) Immature Gran # 0.11 10^3/uL H 10^3/uL (0.00-0.10) POC Sodium 145 mEq/L H mEq/L (134-144) Sodium 146 mEq/L H mEq/L (134-144) POC Potassium 4.0 mEq/L mEq/L (3.3-5.0) Potassium 4.6 mEq/L mEq/L (3.5-5.2) POC Chloride 108 mEq/L mEq/L (97-110) Chloride 106 mEq/L mEq/L (97-110) Carbon Dioxide 21 mEq/l L mEq/l (22-31) Anion Gap 19 mEq/L H mEq/L (8-16) POC BUN 25 mg/dL H mg/dL (7-23) BUN 24 mg/dL H mg/dL (7-23) Creatinine 2.2 mg/dL H mg/dL (0.7-1.3) POC Creatinine 2.1 mg/dL H mg/dL (0.7-1.3) Estimated GFR 30 Glucose 186 mg/dL H mg/dL (70-100) POC Glucose 185 mg/dL H mg/dL (70-100) Calcium 10.1 mg/dL mg/dL (8.5-10.4) Total Bilirubin 0.4 mg/dL mg/dL (0.1-1.4) Conjugated Bilirubin 0.4 mg/dL mg/dL (0.0-0.5) Unconjugated Bilirubin 0.0 mg/dL mg/dL (0.0-1.1) AST 19 IU/L IU/L (17-59) ALT 32 IU/L IU/L (21-72) Alkaline Phosphatase 137 IU/L H IU/L (38-126) Total Protein 7.8 g/dL g/dL (6.3-8.2) Albumin 4.7 g/dL g/dL (3.5-5.0) Lipase 99 IU/L IU/L (23-300) Point of Care Test Results: 03/18/17 08:55 POC Sodium 145 H POC Potassium 4.0 POC Chloride 108 POC BUN 25 H POC Creatinine 2.1 H POC Glucose 185 H Departure - Departure Disposition: [facility] Inpatient Acute Clinical Impression: SBO (small bowel obstruction) Condition: Fair
[2017-03-18 09:15] LABS: % IMMATURE GRANULYOCYTES 0.5 % (0.0-1.1); ABSOLUTE IMMATURE GRANULOCYTES 0.11 10^3/uL (0.00-0.10); ADD DIFF? NO; ADD MORPH? NO; ADD SCAN? NO; ATYPICAL LYMPHOCYTE FLAG 0 (0-99); FRAGMENT RBC FLAG 0 (0-99); HEMATOCRIT 51.9 % (40.0-51.0); LEFT SHIFT FLG 0 (0-99); LIPEMIA HEMOLYSIS FLAG 80 (0-99); MEAN CELL HEMOGLOBIN 28.3 pg (27.9-34.1); MEAN CELL HEMOGLOBIN CONCENTR. 32.8 g/dL (32.4-36.7); MEAN CELL VOLUME 86.4 fL (81.5-99.8); MEAN PLATELET VOLUME 9.5 fL (8.7-11.7); PLATELET CLUMPS FLAG 30 (0-99); PLATELET COUNT 393 10^3/uL (150-400); RED BLOOD CELL COUNT 6.01 10^6/uL (4.40-6.38); RED CELL DISTRIBUTION WIDTH 15.3 % (11.5-15.2)
[2017-03-18 09:25] LABS: ALANINE AMINOTRANSFERASE 32 IU/L (21-72); ALBUMIN 4.7 g/dL (3.5-5.0); ALKALINE PHOSPHATASE 137 IU/L (38-126); ANION GAP 19 mEq/L (8-16); ASPARTATE AMINOTRANSFERASE 19 IU/L (17-59); BILIRUBIN,TOTAL 0.4 mg/dL (0.1-1.4); BILIRUBIN-CONJUGATED 0.4 mg/dL (0.0-0.5); CALCIUM 10.1 mg/dL (8.5-10.4); CARBON DIOXIDE 21 mEq/l (22-31); CHLORIDE 106 mEq/L (97-110); CREATININE 2.2 mg/dL (0.7-1.3); GLOMERULAR FILTRATION RATE 30; GLUCOSE 186 mg/dL (70-100); POTASSIUM 4.6 mEq/L (3.5-5.2); SODIUM 146 mEq/L (134-144); TOTAL PROTEIN 7.8 g/dL (6.3-8.2)
--- NOTE | 2017-03-18 10:47 | CPEKG ---
Heart Rate: 115 RR Interval: 522 P-R Interval: 180 QRSD Interval: 86 QT Interval: 316 QTC Interval: 437 P [place]: 48 QRS [place]: 30 T Wave [place]: -6 EKG Severity - BORDERLINE ECG - EKG Impression: SINUS TACHYCARDIA EKG Impression: BORDERLINE T ABNORMALITIES, INFERIOR LEADS Electronically Signed By: Harshad Oliveros 18-Mar-2017 13:55:42
[2017-03-18] MEDS ORDERED: ONDANSETRON DISINTEGRATING 4 MG TAB PO PRN (13:27)
[2017-03-18] MEDS ORDERED: ONDANSETRON 4 MG/2 ML VIAL IVP PRN (13:27)
[2017-03-18] MEDS ORDERED: ACETAMINOPHEN 325 MG TAB PO PRN (13:27)
[2017-03-18] MEDS ORDERED: D50W 25 GM/50 ML SYR IVP PRN (13:42)
[2017-03-18] MEDS ORDERED: D10W 250 ML PRN HYPOGLYCEMIA IV (14:00)
[2017-03-18] MEDS: HEPARIN 5,000 UNIT/0.5 ML SYR SC SCH ×2 (14:11→23:07)
[2017-03-18] MEDS: NS 1,000 ML IV SCH ×2 (14:11→23:58)
--- NOTE | 2017-03-18 14:20 | GHP ---
[f rep st] HISTORY AND PHYSICAL DATE OF ADMISSION: 03/18/2017 CHIEF COMPLAINT: Small bowel obstruction. HISTORY OF PRESENT ILLNESS: A 62-year-old male with history of a small-bowel obstruction in November 2016, that resolved quickly with conservative measures. He had similar symptoms of a small-bowel obstruction in September 2015, and at that time was diagnosed with an upper GI bleed that was not warranting endoscopy. On this admission, patient was brought from [place] with increased nausea, vomiting, and abdominal distention starting last night. He reports having a bowel movement here this morning. Denies fevers, chills, and sweats. No myalgias. No cough. Denies history of abdominal surgery. Had an NG tube placed in the Emergency room here and is feeling better. Outpatient UA done 03/14, positive for klebsiella and proteus greater than 100, 000. Had his Blount changed 3 weeks ago, and this occurs monthly. REVIEW OF SYSTEMS: I completed a 10-point review of systems, negative except as noted in HPI. PAST MEDICAL HISTORY: 1. CVA in 2010 with left-sided deficits, wheelchair bound. 2. Diabetes. 3. Hypertension. 4. Anemia. 5. Depression. 6. History of pneumonia. 7. 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 8. Chronic Blount. 9. Esophageal ulcer. 10. CKD. SOCIAL HISTORY: Lives in [place] for the past 5 years. Wheelchair bound. Can feed himself, but relies on others for other ADLs. No alcohol, tobacco, or illicit's. PAST SURGICAL HISTORY: None. FAMILY HISTORY: No strokes or heart attacks. ALLERGIES: No known drug allergies. HOME MEDICATIONS: Vitamin D, amlodipine, Flexeril, senna, omeprazole, milk of magnesia, losartan, Effexor, atorvastatin, Compazine as needed, aspirin 81 mg. PHYSICAL EXAMINATION: VITAL SIGNS: Temperature 36.6, blood pressure 138/89, heart rate in the 190s to 1-teens, respirations 20, and 98% on room air. GENERAL: Obese male, lying in bed, no acute distress. HEENT: NG in place with dark brown output; does not appear to be bloody. Dry mucous membranes. CV : Tachy but regular. No murmurs, gallops, or rubs. LUNGS: Clear to auscultation anteriorly. ABDOMEN: Large, distended, soft, nontender. Has bowel sounds throughout. : Chronic Blount in place with yellow urine. MUSCULOSKELETAL: Decreased strength upper and lower on the left, normal 5/5 on the right. NEURO: 2 through 12 intact. PSYCH: Alert and oriented x3. LABORATORY DATA: WBC 20, hemoglobin 17, hematocrit 51, platelets 389. Lactate is 1.7. Sodium 146, potassium 4.6, chloride 106, carbon dioxide 21, BUN 24, creatinine is 2.2 (baseline is 1.7), glucose 186, calcium 10.1, total bilirubin 0.4, alk phos 137. UA from 03/14/2017 shows greater than 100,000 Klebsiella and Proteus. Chest x-ray personally reviewed by me: Poor inspiration. No evidence of pneumonia. EKGs personally reviewed by me: Sinus tachycardia, ST flattening in II, III and aVF. Abdominal CT: Evidence of proximal partial small bowel obstruction with transition in the mid small bowel as seen previously. There is marked distention of the stomach. 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 ASSESSMENT AND PLAN: 1. Recurrent small bowel obstruction: Will treat conservatively with nasogastric tube, intravenous fluids, and n.p.o. Electrolytes are within normal. Unclear etiology, as has not had prior abdominal surgeries. No evidence of a mass on CT. He is not on any offending medications. At last hospitalization in November, symptoms quickly resolved with conservative treatment. Decompress and then check SB follow-through 2. Recurrent Klebsiella/Proteus urinary tract infection: Urinalysis is elevated. We will start ceftriaxone as both are sensitive to this. Will have Blount changed. 3. History of cerebrovascular accident: Chronic left-sided weakness. Wheelchair-bound. 4. Diabetes. Not on any medications outpatient. p.r.n. sliding scale here. 5. Hypertension. Resume home medications. 6. Normocytic anemia, stable. 7. Depression; continue Effexor. 8. Chronic kidney disease: Creatinine elevated today, suspect secondary to nausea and vomiting. Will hydrate and repeat in the morning. 9. Deep vein thrombosis prophylaxis, heparin. 10. Patient warrants inpatient admission given acute small bowel obstruction requiring nasogastric tube and intravenous fluids. /[id number]/MODL MTDD
[2017-03-18 17:25] LABS: COLOR COLORLESS; LEUKOCYTE ESTERASE,URINE NEGATIVE (NEGATIVE); NITRITE,URINE NEGATIVE (NEGATIVE)
[2017-03-18 17:34] LABS: MUCUS TRACE /lpf (NONE-1+); RBC,URINE NONE SEEN /hpf (0-3)
[2017-03-18] MEDS: INSULIN LISPRO 100 UNIT/ML SC SCH (18:19)
[2017-03-19] MEDS: HEPARIN 5,000 UNIT/0.5 ML SYR SC SCH ×3 (04:59→22:08)
[2017-03-19 05:30] LABS: HEMATOCRIT 44.8 % (40.0-51.0); HEMOGLOBIN 14.4 g/dL (13.7-17.5); MEAN CELL HEMOGLOBIN 27.7 pg (27.9-34.1); MEAN CELL HEMOGLOBIN CONCENTR. 32.1 g/dL (32.4-36.7); MEAN CELL VOLUME 86.3 fL (81.5-99.8); RED BLOOD CELL COUNT 5.19 10^6/uL (4.40-6.38); RED CELL DISTRIBUTION WIDTH 15.4 % (11.5-15.2)
[2017-03-19 05:44] LABS: ANION GAP 11 mEq/L (8-16); CALCIUM 9.1 mg/dL (8.5-10.4); CARBON DIOXIDE 22 mEq/l (22-31); CHLORIDE 112 mEq/L (97-110); GLOMERULAR FILTRATION RATE 34; GLUCOSE 129 mg/dL (70-100); POTASSIUM 4.1 mEq/L (3.5-5.2); SODIUM 145 mEq/L (134-144)
--- NOTE | 2017-03-19 08:50 | HOSPPROG ---
Hospitalist Progress Note Assessment/Plan: #SBO: distension much improved. Large amount diarrhea today. Check C diff. Repeat AXR. Trial clamping NG #N/V: none today #Leukocytosis: improved. May be due to SBO. Check C diff with diarrhea today. OSH UA + for Proteus/Klebs, but UA normal. Suspect colonization. If fevers or WBC not improved, will add abx #DM: SSI #h/o CVA: wheel-chair bound. ASA and statin once taking PO #HTN: resume home meds once taking PO #Depression: home meds once taking po #Diet: NPO #Disp: cont inpatient status for SBO, IVFs, serial abd exams Subjective: diarrhea this morning. No N/V. distension much improved Objective: Vital Signs Temp Pulse Resp BP Pulse Ox 36.4 C 104 H 16 140/93 H 90 L 03/19/17 07:25 03/19/17 07:25 03/19/17 07:25 03/19/17 07:25 03/19/17 07:25 Laboratory Results 03/19/17 05:10 03/19/17 05:10 03/18/17 03/19/17 03/20/17 05:59 05:59 05:59 Intake Total 1489 Output Total 1750 Balance -261 - Physical Exam Constitutional: no apparent distress, other (NAD) Eyes: PERRL Ears, Nose, Mouth, Throat: moist mucous membranes Cardiovascular: regular rate and rhythym Respiratory: no respiratory distress Gastrointestinal: normoactive bowel sounds, soft, non-tender abdomen, other ( distension much improved, soft, NT, ) Genitourinary: no bladder fullness, diaz in urethra Skin: warm Musculoskeletal: full muscle strength, other (chronic left-sided weakness) Neurologic: AAOx3, CN II-XII Intact Psychiatric: interacting appropriately ICD10 Worksheet Patient Problems: Problems Problem Status Onset SBO (small bowel obstruction) Acute Aspiration pneumonia Acute Bowel obstruction Acute Dyspnea Acute Hematuria Acute History of CVA with residual deficit Acute Hydronephrosis Acute Hypoxia Acute Leukocytosis Acute Neoplasm of renal pelvis Acute Sepsis Acute Upper GI bleed Acute Upper GI bleed Acute Vomiting Acute Vomiting Acute
[2017-03-19] MEDS: INSULIN LISPRO 100 UNIT/ML SC SCH ×3 (09:06→18:21)
[2017-03-19] MEDS: NS 1,000 ML IV SCH (10:35)
--- NOTE | 2017-03-19 15:13 | WOCRNPDOC ---
WOCRN Advanced Assessment Note - Skin Integrity Problem, Advanced Assess Left Buttock Dressing Type: Allevyn Life Exudate Amount: None Exudate Characteristic(s): None Integumentary Issue Intervention: Barrier Cream Applied (Calazime) Natacha Wound Tissue: Blanching, Dry Natacha Wound Swelling: None Wound Bed Color: Red Site Odor: None Skin Integrity Problem Comment: Partial-thickness tissue loss noted over L buttock, more consistent w/ friction injury than w/ pressure injury. Skin throughout patient's bilateral buttocks is dry, friable and mildly denuded. Recommend Calazime cream BID, and off-loading buttocks using TAPS while in bed to prevent any additional injury to skin.
--- NOTE | 2017-03-19 16:11 | ASMTCMCOM ---
CM Note CM Note Notes: Chart reviewed, pt is a 62 y/o man admitted w/ a small bowel obstruction. Pt lives at [place] and has been living there for the past 5 years. Pt is requesting to be transferred to [facility]. CM informed pt that CM cannot facilitate transfer and he needs to request it through [place]. Pt is wheelchair bound. Pt is able to feed self but depends on others for other ADLs. Pt is having an NG tube placed. PT/OT are recommending SNF. Pt will discharge back to [facility] when medically stable. Date Signed: 03/19/2017 04:11 PM Electronically Signed By:ANGEL Chu
[2017-03-19] MEDS: D5W NS 1,000 ML IV SCH (20:09)
[2017-03-20] MEDS: D5W NS 1,000 ML IV SCH (04:49)
[2017-03-20 05:56] LABS: HEMATOCRIT 41.5 % (40.0-51.0); HEMOGLOBIN 12.8 g/dL (13.7-17.5); MEAN CELL HEMOGLOBIN 27.2 pg (27.9-34.1); MEAN CELL HEMOGLOBIN CONCENTR. 30.8 g/dL (32.4-36.7); MEAN CELL VOLUME 88.3 fL (81.5-99.8); RED BLOOD CELL COUNT 4.7 10^6/uL (4.40-6.38); RED CELL DISTRIBUTION WIDTH 15.3 % (11.5-15.2)
[2017-03-20 06:10] LABS: ANION GAP 9 mEq/L (8-16); CALCIUM 8.7 mg/dL (8.5-10.4); CARBON DIOXIDE 26 mEq/l (22-31); CHLORIDE 108 mEq/L (97-110); CREATININE 1.7 mg/dL (0.7-1.3); GLOMERULAR FILTRATION RATE 41; GLUCOSE 114 mg/dL (70-100); POTASSIUM 3.7 mEq/L (3.5-5.2); SODIUM 143 mEq/L (134-144)
[2017-03-20] MEDS: HEPARIN 5,000 UNIT/0.5 ML SYR SC SCH ×3 (06:25→21:12)
--- NOTE | 2017-03-20 08:41 | HOSPPROG ---
Hospitalist Progress Note Assessment/Plan: #SBO: distension much improved. No N/V. . Check C diff. Repeat AXR. Trial clamping NG #N/V: none today #Leukocytosis: improved. May be due to SBO. Check C diff with diarrhea today. OSH UA + for Proteus/Klebs, but UA normal. Suspect colonization. If fevers or WBC not improved, will add abx #DM: SSI #h/o CVA: wheel-chair bound. ASA and statin once taking PO #HTN: resume home meds once taking PO #Depression: home meds once taking po #Diet: NPO #Disp: cont inpatient status for SBO, IVFs, serial abd exams Subjective: no N/V Objective: Vital Signs Temp Pulse Resp BP Pulse Ox 36.6 C 86 20 143/82 H 96 03/20/17 08:00 03/20/17 08:00 03/20/17 08:00 03/20/17 08:00 03/20/17 08:00 Laboratory Results 03/20/17 05:09 03/20/17 05:09 03/19/17 03/20/17 03/21/17 05:59 05:59 05:59 Intake Total 1489 3105 Output Total 1750 1725 Balance -261 1380 ICD10 Worksheet Patient Problems: Problems Problem Status Onset SBO (small bowel obstruction) Acute Aspiration pneumonia Acute Bowel obstruction Acute Dyspnea Acute Hematuria Acute History of CVA with residual deficit Acute Hydronephrosis Acute Hypoxia Acute Leukocytosis Acute Neoplasm of renal pelvis Acute Sepsis Acute Upper GI bleed Acute Upper GI bleed Acute Vomiting Acute Vomiting Acute
--- NOTE | 2017-03-20 14:59 | HOSPPROG ---
Hospitalist Progress Note Assessment/Plan: #Ileus: distension much improved. Large amount diarrhea today. Check C diff. Repeat AXR. Trial clamping NG #N/V: none today #Leukocytosis: improved. May be due to SBO. Check C diff with diarrhea today. OSH UA + for Proteus/Klebs, but UA normal. Suspect colonization. If fevers or WBC not improved, will add abx #DM: SSI #h/o CVA: wheel-chair bound. ASA and statin once taking PO #HTN: resume home meds once taking PO #Depression: home meds once taking po #Diet: NPO #Disp: cont inpatient status for SBO, IVFs, serial abd exams Subjective: no N/V. passing flatus, large diarrhea Objective: Vital Signs Temp Pulse Resp BP Pulse Ox 36.7 C 78 18 123/77 H 91 L 03/20/17 11:52 03/20/17 11:52 03/20/17 11:52 03/20/17 11:52 03/20/17 11:52 Laboratory Results 03/20/17 05:09 03/20/17 05:09 03/19/17 03/20/17 03/21/17 05:59 05:59 05:59 Intake Total 1489 3105 Output Total 1750 1725 Balance -261 1380 - Physical Exam Constitutional: obese Eyes: PERRL Ears, Nose, Mouth, Throat: moist mucous membranes Cardiovascular: regular rate and rhythym, no murmur, rub, or gallop Respiratory: no respiratory distress, no rales or rhonchi Gastrointestinal: normoactive bowel sounds, soft, non-tender abdomen, distension (improved distension) Genitourinary: no bladder fullness Skin: warm Musculoskeletal: full muscle strength Neurologic: AAOx3, CN II-XII Intact Psychiatric: interacting appropriately ICD10 Worksheet Patient Problems: Problems Problem Status Onset SBO (small bowel obstruction) Acute Aspiration pneumonia Acute Bowel obstruction Acute Dyspnea Acute Hematuria Acute History of CVA with residual deficit Acute Hydronephrosis Acute Hypoxia Acute Leukocytosis Acute Neoplasm of renal pelvis Acute Sepsis Acute Upper GI bleed Acute Upper GI bleed Acute Vomiting Acute Vomiting Acute
[2017-03-20] MEDS ORDERED: VENLAFAXINE XR 37.5 MG CAP PO SCH (19:30)
[2017-03-20] MEDS: CYCLOBENZAPRINE 10 MG TAB PO SCH (21:10)
[2017-03-20] MEDS: ATORVASTATIN CALCIUM 10 MG TAB PO SCH (21:12)
[2017-03-21 05:12] LABS: ANION GAP 10 mEq/L (8-16); CALCIUM 8.7 mg/dL (8.5-10.4); CARBON DIOXIDE 19 mEq/l (22-31); CHLORIDE 110 mEq/L (97-110); CREATININE 1.4 mg/dL (0.7-1.3); GLOMERULAR FILTRATION RATE 51; GLUCOSE 85 mg/dL (70-100); POTASSIUM 4.2 mEq/L (3.5-5.2); SODIUM 139 mEq/L (134-144); SPECIMEN HEMOLYSIS 126
[2017-03-21] MEDS: CYCLOBENZAPRINE 10 MG TAB PO SCH ×3 (06:00→21:07)
[2017-03-21] MEDS: HEPARIN 5,000 UNIT/0.5 ML SYR SC SCH ×3 (06:00→21:08)
[2017-03-21 08:36] LABS: HEMATOCRIT 39.1 % (40.0-51.0); HEMOGLOBIN 12.4 g/dL (13.7-17.5); MEAN CELL HEMOGLOBIN 27.8 pg (27.9-34.1); MEAN CELL HEMOGLOBIN CONCENTR. 31.7 g/dL (32.4-36.7); MEAN CELL VOLUME 87.7 fL (81.5-99.8); RED BLOOD CELL COUNT 4.46 10^6/uL (4.40-6.38); RED CELL DISTRIBUTION WIDTH 14.8 % (11.5-15.2)
[2017-03-21] MEDS: ASPIRIN 81 MG CHEWABLE TAB PO SCH (09:21)
[2017-03-21] MEDS: LOSARTAN POTASSIUM 25 MG TAB PO SCH (09:21)
[2017-03-21] MEDS: ATORVASTATIN CALCIUM 10 MG TAB PO SCH (09:21)
[2017-03-21] MEDS: PANTOPRAZOLE SODIUM 40 MG TAB PO SCH (09:21)
[2017-03-21] MEDS ORDERED: GASTROVIEW 30 ML UNIT PO ONE (09:33)
--- NOTE | 2017-03-21 11:25 | HOSPPROG ---
Hospitalist Progress Note Assessment/Plan: #Ileus: improved distension today. No N/V. Large diarrhea yesterday, but C diff was not collected. Advance to full liquids. Repeat AXR. #N/V: none today #Leukocytosis: improved. May be due to SBO. Check C diff with diarrhea today. OSH UA + for Proteus/Klebs, but UA normal. Suspect colonization. If fevers or WBC not improved, will add abx #DM: SSI #h/o CVA: wheel-chair bound. ASA #HTN: resume home meds #Depression: home meds #Diet: NPO #Disp: cont inpatient status for SBO, IVFs, serial abd exams Subjective: no N/V. Large diarrhea yesterday Objective: Vital Signs Temp Pulse Resp BP Pulse Ox 36.8 C 90 12 156/86 H 91 L 03/21/17 08:00 03/21/17 08:00 03/21/17 08:00 03/21/17 09:21 03/21/17 08:00 Laboratory Results 03/21/17 08:31 03/21/17 04:39 03/20/17 03/21/17 03/22/17 05:59 05:59 05:59 Intake Total 3105 Output Total 1725 2075 Balance 1380 -2075 - Physical Exam Constitutional: no apparent distress Eyes: PERRL Ears, Nose, Mouth, Throat: moist mucous membranes, other (NG in place) Cardiovascular: regular rate and rhythym, no murmur, rub, or gallop Respiratory: no respiratory distress, no rales or rhonchi Gastrointestinal: other (obsese. Less distension today. +BS. No TTP) Skin: warm, normal color Musculoskeletal: other (left-side muscle weakness (chronic)) Neurologic: AAOx3, CN II-XII Intact Psychiatric: interacting appropriately, No not encephalopathic ICD10 Worksheet Patient Problems: Problems Problem Status Onset SBO (small bowel obstruction) Acute Aspiration pneumonia Acute Bowel obstruction Acute Dyspnea Acute Hematuria Acute History of CVA with residual deficit Acute Hydronephrosis Acute Hypoxia Acute Leukocytosis Acute Neoplasm of renal pelvis Acute Sepsis Acute Upper GI bleed Acute Upper GI bleed Acute Vomiting Acute Vomiting Acute
[2017-03-21] MEDS: BACITRACIN OINTMENT 1 PACKET TP SCH ×2 (13:45→21:08)
[2017-03-21] MEDS: VENLAFAXINE XR 37.5 MG CAP PO SCH (13:51)
[2017-03-22 05:31] LABS: HEMATOCRIT 38.7 % (40.0-51.0); HEMOGLOBIN 12.4 g/dL (13.7-17.5); MEAN CELL HEMOGLOBIN 27.7 pg (27.9-34.1); MEAN CELL VOLUME 86.6 fL (81.5-99.8); RED BLOOD CELL COUNT 4.47 10^6/uL (4.40-6.38); RED CELL DISTRIBUTION WIDTH 14.5 % (11.5-15.2)
[2017-03-22 05:45] LABS: ANION GAP 12 mEq/L (8-16); CALCIUM 8.6 mg/dL (8.5-10.4); CARBON DIOXIDE 24 mEq/l (22-31); CHLORIDE 106 mEq/L (97-110); CREATININE 1.5 mg/dL (0.7-1.3); GLOMERULAR FILTRATION RATE 47; GLUCOSE 87 mg/dL (70-100); POTASSIUM 3.5 mEq/L (3.5-5.2); SODIUM 142 mEq/L (134-144)
[2017-03-22] MEDS: HEPARIN 5,000 UNIT/0.5 ML SYR SC SCH ×3 (06:02→21:39)
[2017-03-22] MEDS: CYCLOBENZAPRINE 10 MG TAB PO SCH ×3 (06:02→21:39)
[2017-03-22] MEDS: VENLAFAXINE XR 37.5 MG CAP PO SCH (11:02)
[2017-03-22] MEDS: ASPIRIN 81 MG CHEWABLE TAB PO SCH (11:02)
[2017-03-22] MEDS: LOSARTAN POTASSIUM 25 MG TAB PO SCH (11:02)
[2017-03-22] MEDS: ATORVASTATIN CALCIUM 10 MG TAB PO SCH (11:02)
[2017-03-22] MEDS: BACITRACIN OINTMENT 1 PACKET TP SCH ×2 (11:03→21:39)
[2017-03-22] MEDS: PANTOPRAZOLE SODIUM 40 MG TAB PO SCH (11:03)
--- NOTE | 2017-03-22 11:52 | HOSPPROG ---
Hospitalist Progress Note Assessment/Plan: #Ileus: no distension today. AXR after gastoview showed improved ileus. Diarrhea today; negative C diff. Advance diet. Monitor overnight to ensure tolerates regular diet. If does, can DC tomorrow #N/V: none today #Leukocytosis: improved. May be due to SBO. Check C diff with diarrhea today. OSH UA + for Proteus/Klebs, but UA normal. Suspect colonization. If fevers or WBC not improved, will add abx #DM: SSI #CKD: Cr stable, renally-dose meds #h/o CVA: wheel-chair bound. ASA and statin once taking PO #HTN: home meds #Depression: resumed home meds #Uretheral ulceration: no purulence. 2/2 diaz. Bacitracin BID. FU urology #Diet: low fiber diet #Disp: cont inpatient status for ileus. If tolerates diet, can DC tomorrow Subjective: large diarrhea. No N/V Objective: Vital Signs Temp Pulse Resp BP Pulse Ox 36.9 C 88 20 148/88 H 96 03/22/17 07:14 03/22/17 07:14 03/22/17 07:14 03/22/17 11:03 03/22/17 07:14 Laboratory Results 03/22/17 05:11 03/22/17 05:11 03/21/17 03/22/17 03/23/17 05:59 05:59 05:59 Output Total 2074 3549 Balance -2074 - Physical Exam Constitutional: no apparent distress, obese Eyes: PERRL Ears, Nose, Mouth, Throat: moist mucous membranes Cardiovascular: regular rate and rhythym, no murmur, rub, or gallop Respiratory: no respiratory distress, no rales or rhonchi Gastrointestinal: normoactive bowel sounds, soft, non-tender abdomen, No distension Genitourinary: diaz in urethra (uretheral site with erythema on underside, ulcerated. No purulence. Mild swelling at glans) Musculoskeletal: other (chronic left-sided weakness) Neurologic: CN II-XII Intact Psychiatric: interacting appropriately, not encephalopathic ICD10 Worksheet Patient Problems: Problems Problem Status Onset SBO (small bowel obstruction) Acute Aspiration pneumonia Acute Bowel obstruction Acute Dyspnea Acute Hematuria Acute History of CVA with residual deficit Acute Hydronephrosis Acute Hypoxia Acute Leukocytosis Acute Neoplasm of renal pelvis Acute Sepsis Acute Upper GI bleed Acute Upper GI bleed Acute Vomiting Acute Vomiting Acute
[2017-03-23] MEDS: HEPARIN 5,000 UNIT/0.5 ML SYR SC SCH ×2 (05:42→14:41)
[2017-03-23] MEDS: BACITRACIN OINTMENT 1 PACKET TP SCH (08:39)
[2017-03-23] MEDS: VENLAFAXINE XR 37.5 MG CAP PO SCH (08:40)
[2017-03-23] MEDS: CYCLOBENZAPRINE 10 MG TAB PO SCH ×2 (08:40→12:05)
[2017-03-23] MEDS: LOSARTAN POTASSIUM 25 MG TAB PO SCH (08:41)
[2017-03-23] MEDS: ATORVASTATIN CALCIUM 10 MG TAB PO SCH (08:41)
[2017-03-23] MEDS: ASPIRIN 81 MG CHEWABLE TAB PO SCH (08:41)
[2017-03-23] MEDS: PANTOPRAZOLE SODIUM 40 MG TAB PO SCH (08:41)
--- NOTE | 2017-03-23 10:01 | WOCRNPDOC ---
WOCRN Advanced Assessment Note - Skin Integrity Problem, Advanced Assess Distal Penis Dressing Type: Open to Air Exudate Amount: Scant Exudate Characteristic(s): Serosanguinous Wound Bed Color: Red Wound Bed Constitution: Smooth Tissue Site Measurement - Head-to-Toe Length X Width X Depth (cm): 0.3cmx0.2cmx0.1cm Skin Integrity Problem Comment: Small, discrete wound on the underside of the distal penis, which was observed after retracting skin. No purulence. This appears to be the result of friction from his chronic Blount and moisture. Recommend changing stat-lock to reduce tension on cath tubing. In addition, dc orders for Barb Banks to perform Blount cath care daily.
[2017-03-23 11:12] VITALS: RESP 20
--- NOTE | 2017-03-23 14:16 | HOSPPROG ---
Hospitalist Progress Note Assessment/Plan: #Ileus: appears to have resolved #N/V: none today #Leukocytosis: improved. May be due to SBO. Check C diff with diarrhea today. OSH UA + for Proteus/Klebs, but UA normal. Suspect colonization. If fevers or WBC not improved, will add abx #DM: SSI #CKD: Cr stable, renally-dose meds #h/o CVA: wheel-chair bound. ASA and statin once taking PO #HTN: home meds #Depression: resumed home meds #Uretheral ulceration: no purulence. 2/2 diaz. Bacitracin BID. FU urology #Diet: low fiber diet #Disp: home today > 30 minutes Subjective: eating. moving bowels. no pain Objective: Vital Signs Temp Pulse Resp BP Pulse Ox 36.8 C 100 20 160/93 H 95 03/23/17 11:11 03/23/17 11:11 03/23/17 11:11 03/23/17 11:11 03/23/17 11:11 Laboratory Results 03/22/17 05:11 03/22/17 05:11 03/22/17 03/23/17 03/24/17 05:59 05:59 05:59 Output Total 3550 1700 Balance -3550 -1700 - Physical Exam Constitutional: no apparent distress, appears nourished Eyes: PERRL, anicteric sclera Ears, Nose, Mouth, Throat: moist mucous membranes, hearing normal Cardiovascular: regular rate and rhythym, no murmur, rub, or gallop Respiratory: no respiratory distress, no rales or rhonchi Gastrointestinal: normoactive bowel sounds, soft, non-tender abdomen, No guarding, No rebound, No distension Genitourinary: no bladder fullness, No diaz in urethra Skin: warm, normal color Musculoskeletal: full muscle strength Neurologic: AAOx3 ICD10 Worksheet Patient Problems: Problems Problem Status Onset SBO (small bowel obstruction) Acute Aspiration pneumonia Acute Bowel obstruction Acute Dyspnea Acute Hematuria Acute History of CVA with residual deficit Acute Hydronephrosis Acute Hypoxia Acute Leukocytosis Acute Neoplasm of renal pelvis Acute Sepsis Acute Upper GI bleed Acute Upper GI bleed Acute Vomiting Acute Vomiting Acute
--- NOTE | 2017-03-23 14:19 | PDIAF ---
- Diagnosis Diagnosis: SBO Code Status: Full Code - Medication Management Discharge Medications: Medications to Continue on Transfer Atorvastatin Calcium [Lipitor 10 mg (*)] 10 mg PO DAILY 01/05/15 [Last Taken 01/11 19:00] Acetic Acid Irr Soln 0.25% 30 ml IRR BID 12/03/16 [Last Taken 12/02/16 19:00] Aspirin [Aspirin 81mg (*)] 81 mg PO DAILY 12/03/16 [Last Taken 12/01/16 09:00] CYCLOBENZAPRINE HCL [Flexeril] 5 mg PO HS 12/03/16 [Last Taken 12/02/16 19:00] Cyclobenzaprine [Flexeril 10 MG (*)] 10 mg PO BID@0700,1100 12/03/16 [Last Taken 12/02/16 11:00] Omeprazole 40 mg PO DAILY 12/03/16 [Last Taken Unknown] Ergocalciferol [Vitamin D2 (*)] 50,000 unit PO Q30D 03/18/17 [Last Taken Unknown ] Losartan Potassium [Cozaar 25 mg (*)] 25 mg PO DAILY 03/18/17 [Last Taken Unknown] Magnesium Hydroxide/Al Hydrox [Mylanta Liquid] 30 ml PO Q8HRS PRN 03/18/17 [ Last Taken Unknown] Prochlorperazine Maleate [Compazine 25mg supp (*)] 25 mg RC BID PRN 03/18/17 [ Last Taken Unknown] Sennosides/Docusate Sodium [Senna-Docusate Sodium Tablet] 1 each PO BID [Last Taken Unknown] Venlafaxine Xr [Effexor Xr 37.5MG (*)] 112.5 mg PO DAILY 03/18/17 [Last Taken Unknown] amLODIPine BESYLATE [Norvasc 10 mg (*)] 10 mg PO DAILY 03/18/17 [Last Taken Unknown] Discharge Medications: Refer to the Discharge Home Medication list for PRN reason. - Orders Services needed: Registered Nurse, Physical Therapy, Occupational Therapy - Follow Up Care Current Providers and Referrals: JULIUS HUGGINS [Primary Care Provider] - As per Instructions
--- NOTE | 2017-03-23 14:41 | ASMTCMCOM ---
CM Note CM Note Notes: Pt is being discharged back to [facility]. CM spoke w/ Danish at [facility] and coordinated a time for d/c. CM set up transport via stretcher w/ [facility]. PCS form is in the pts chart. CM provided PAULIE Aguilar w/ phone number to give report. CM faxed over d/c orders to [facility]. CM available for changes. Date Signed: 03/23/2017 02:41 PM Electronically Signed By:ANGEL Chu
[2017-03-23 15:29] VITALS: BP 153/87; PULSE 99; TEMP 98.8; O2SAT 94
--- NOTE | 2017-03-23 16:22 | ASDISCHSUM ---
Discharge Information Plan Status:SNF Medically Cleared to Leave:03/23/2017 Discharge Date:03/23/2017 04:00 PM D/C Disposition:[facility] Facility ADT D/C Disposition:[facility] Facility Projected Discharge Date:03/23/2017 11:00 AM Transportation at D/C: Discharge Delay Reason: Follow-Up Date:03/23/2017 11:00 AM Discharge Slot: Final Diagnosis: Placement Information Referral Type:*Residential/SNF Referral ID:[id number] Provider Name:Barb Solisulder Address 1:[address] Address 2: City:[place] Selection Factors: State:[place] Patient Contact Information Contact Name:LUPE Relationship:Friend [address] Work Phone: [facility]:[place] Alternate Phone: State/Zip Code:[place] [address] Email: Financial Information Financial Class: Primary Plan Desc:[employer] [place] Primary Plan Number:[id number] Secondary Plan Desc: Secondary Plan Number: Assessment Information [facility] CM Progress Note CM Note CM Note Notes: Chart reviewed, pt is a 62 y/o man admitted w/ a small bowel obstruction. Pt lives at [facility] and has been living there for the past 5 years. Pt is requesting to be transferred to [facility]. CM informed pt that CM cannot facilitate transfer and he needs to request it through [facility]. Pt is wheelchair bound. Pt is able to feed self but depends on others for other ADLs. Pt is having an NG tube placed. PT/OT are recommending SNF. Pt will discharge back to [facility] when medically stable. Date Signed: 03/19/2017 04:11 PM Electronically Signed By:ANGEL Chu [facility] CM Progress Note CM Note CM Note Notes: Pt is being discharged back to [facility]. CM spoke w/ Danish at [facility] and coordinated a time for d/c. CM set up transport via stretcher w/ [facility]. PCS form is in the pts chart. CM provided PAULIE Aguilar w/ phone number to give report. CM faxed over d/c orders to [facility]. CM available for changes. Date Signed: 03/23/2017 02:41 PM Electronically Signed By:ANGEL Chu Intervention Information
--- NOTE | 2017-03-23 22:56 | GDS ---
[f rep st] DISCHARGE SUMMARY DISCHARGE DIAGNOSES: 1. Small bowel obstruction. 2. History of cerebrovascular accident with left-sided deficits and wheelchair-bound. 3. Diabetes. 4. Hypertension. 5. Anemia. NARRATIVE: Please see Admission History and Physical by Dr. Jeannette Andrews. The patient presented w ith abdominal pain. Abdominal CT on the showed evidence proximal partial small-bowel obstructio n without masses; there was transition point in the mid small bowel as previously seen. He was manag ed symptomatically with improvement of his symptoms. He had an abdominal x-ray performed on the even ing of the , showing predominant resolution. The patient was tolerating orals and anxious for di scharge. He is discharged back to [facility] on the evening of the . /[id number]/MODL
== END 2017-03-23 16:00 | DRG 389 ==
LOC: EDUNIT# → F3E 12:39
PROVIDERS: ADMIT Internal Medicine; ATTEND Internal Medicine
DX: K56.0 Paralytic ileus (principal); I69.354 Hemiplegia and hemiparesis following cerebral infarction affecting left non-dominant side; E11.9 Type 2 diabetes mellitus without complications; I12.9 Hypertensive chronic kidney disease with stage 1 through stage 4 chronic kidney disease, or unspecified chronic kidney disease; N18.9 Chronic kidney disease, unspecified; J45.909 Unspecified asthma, uncomplicated; Z99.3 Dependence on wheelchair
CPT/HCPCS: 82947-QW; 97110-GO; 97162-GP; 97166-GO; 97530-GO; 97530-GP; J1815

== ENCOUNTER → 2017-04-07 | Outpatient (CLI) | payer MEDICAID | LOC: FIMAGING 08:07 | PROVIDERS: ATTEND Internal Medicine | DX: N20.0 Calculus of kidney (principal); N18.3 Chronic kidney disease, stage 3 (moderate); N31.9 Neuromuscular dysfunction of bladder, unspecified; I69.954 Hemiplegia and hemiparesis following unspecified cerebrovascular disease affecting left non-dominant side ==

== ENCOUNTER 2018-11-23 20:08 | Emergency (ER) | payer MEDICAID | END 2018-11-23 22:28 | disposition home or self-care (01) ==